=== PATIENT | male | born 1985 | race Caucasian/White ===

== ENCOUNTER 2018-11-02 11:35 | Emergency (ER) | payer OTHER ==
[2018-11-02] MEDS ORDERED: NS 500 ML IV ONE (12:06)
--- NOTE | 2018-11-02 12:07 | EDPHY ---
H & P Stated Complaint: Syncope x2 last night Time Seen by Provider: 11/02/18 11:55 HPI/ROS: CHIEF COMPLAINT: Syncope HISTORY OF PRESENT ILLNESS: 33-year-old male presents after a syncopal episode yesterday. He received a flu shot yesterday. Feeling achy and feverish since the flu shot. This morning he was getting ready to take a shower and had a syncopal episode. His girlfriend found him sitting on the floor. Very pale and diaphoretic, confused for a few seconds, but then back to normal. Prior history of vasovagal episodes. No chest pain or shortness of breath. Did not hit his head and denies injuries/pain. REVIEW OF SYSTEMS: complete 10 point ROS reviewed and is negative except for the noted elements in the HPI - Personal History Current Tetanus/Diphtheria Vaccine: Yes - Medical/Surgical History Hx Asthma: No Hx Chronic Respiratory Disease: No Hx Diabetes: No Hx Cardiac Disease: No Hx Renal Disease: No Hx Cirrhosis: No Hx Alcoholism: No Other PMH: Denies - Social History Smoking Status: Never smoked Alcohol Use: Sober Drug Use: None - Physical Exam Exam: General Appearance: Alert, pleasant Eyes: Pupils equal and round, no conjunctival pallor ENT, Mouth: Mucous membranes moist Neck: Normal inspection, no tenderness Respiratory: Lungs are clear to auscultation Cardiovascular: Regular rate and rhythm, no murmur Gastrointestinal: Abdomen is soft and nontender Neurological: A&O, CN II-XII intact, motor/sensory grossly intact, normal gait Skin: Warm and dry Extremities: normal inspection Psychiatric: Mood and affect normal Constitutional: Initial Vital Signs Temperature (C) 36.8 C 11/02/18 11:39 Heart Rate 67 11/02/18 11:39 Respiratory Rate 18 11/02/18 11:39 Blood Pressure 116/69 11/02/18 11:39 O2 Sat (%) 96 11/02/18 11:39 O2 Delivery Mode Room Air Allergies/Adverse Reactions: No Known Allergies Allergy (Unverified 11/02/18 11:43) Home Medications: Medication Instructions Recorded NK [No Known Home Meds] 11/02/18 Medical Decision Making - Diagnostics EKG Interpretation: EKG interpreted by me reveals NSR, rate 57, no ST/T changes. Interpretation: normal EKG ED Course/Re-evaluation: This pt presents after a syncopal episode. VS unremarkable and EKG normal. Most likely vasovagal episode, given young age and prodromal sx. labs unremarkable and teletypesetter monitor revealed NSR throughout. Pt ambulated in ED, denies dizziness. Warning signs discussed. f/u PCP. Differential Diagnosis: includes though not limited to dehydration, hypoglycemia, dysrhythmia, ACS, TIA. - Data Points Laboratory Results: Laboratory Results 11/02/18 12:15 11/02/18 12:15 Medications Given: Discontinued Medications Sodium Chloride (Ns) 500 mls @ 0 mls/hr IV EDNOW ONE; Wide Open PRN Reason: Protocol Stop: 11/02/18 12:07 Last Admin: 11/02/18 12:18 Dose: 500 mls Departure - Departure Disposition: Home, Routine, Self-Care Clinical Impression: Syncope Qualifiers: Syncope type: vasovagal syncope Qualified Code(s): R55 - Syncope and collapse Condition: Good Instructions: Syncope (ED) Additional Instructions: Return for recurrent fainting or any concerns. Referrals: Jani Brown MD [Primary Care Provider] - As per Instructions
[2018-11-02 12:33] LABS: PLATELET COUNT 265 10^3/uL (150-400)
[2018-11-02 13:05] VITALS: BP 115/73
--- NOTE | 2018-11-02 13:57 | CPEKG ---
Test Reason : OPEN Blood Pressure : / mmHG Vent. Rate : 056 BPM Atrial Rate : 057 BPM P-R Int : 117 ms QRS Dur : 093 ms QT Int : 424 ms P-R-T Axes : 049 059 045 degrees QTc Int : 410 ms Sinus rhythm Confirmed by Breana Brown ([id number]) on 11/02/2018 1:56:55 PM Referred By: Confirmed By:Breana Brown
== END 2018-11-02 13:04 | disposition home or self-care (01) ==
DX: R55 Syncope and collapse (principal)